=== PATIENT | female | born 1995 | race Two or more races ===

== ENCOUNTER 2024-05-29 10:20 | Outpatient (CLI) | payer OTHER | END 2024-05-29 10:22 | disposition home or self-care (01) | LOC: PRENATAL 10:20 | PROVIDERS: ATTEND Obstetrics & Gynecology Maternal & Fetal Medicine | DX: O36.80X0 Pregnancy with inconclusive fetal viability, not applicable or unspecified (principal); Z36.82 Encounter for antenatal screening for nuchal translucency; Z14.8 Genetic carrier of other disease; Z3A.12 12 weeks gestation of pregnancy ==

== ENCOUNTER → 2024-07-25 | Outpatient (CLI) | payer OTHER | END | disposition home or self-care (01) | LOC: PRENATAL 08:07 | PROVIDERS: ATTEND Obstetrics & Gynecology Maternal & Fetal Medicine | DX: O44.00 Complete placenta previa NOS or without hemorrhage, unspecified trimester (principal); Z3A.20 20 weeks gestation of pregnancy ==

== ENCOUNTER → 2024-10-17 10:57 | Outpatient (CLI) | payer OTHER | END | disposition home or self-care (01) | LOC: PRENATAL 10:57 | PROVIDERS: ATTEND Obstetrics & Gynecology Maternal & Fetal Medicine | DX: O26.849 Uterine size-date discrepancy, unspecified trimester (principal); O36.8199 Decreased fetal movements, unspecified trimester, other fetus; Z3A.32 32 weeks gestation of pregnancy ==

== ENCOUNTER 2024-12-01 13:45 | Inpatient (IN) | payer OTHER ==
[~2024-12-01] VITALS: Ht 157.5 cm; Wt 77.1 kg
[2024-12-01 13:27] LABS: MEAN CELL VOLUME 83.8 fL (80.00-100.00); MEAN CORPUSCULAR HEMOGLOBIN 27.9 pg (27.00-32.0); MEAN CORPUSCULAR HGB CONC 33.4 g/dl (32.0-36.0); PLATELET COUNT 278 K/uL (150-450); RED CELL DISTRIBUTION WIDTH 16.5 % (11.5-14.5)
[2024-12-01 13:44] LABS: INR < 0.93; PARTIAL THROMBOPLASTIN TIME 26.2 SECONDS (22.0-34.0); PROTHROMBIN TIME 9.8 SECONDS (9.0-11.5)
[2024-12-01 14:54] LABS: CALCIUM 8.9 mg/dL (8.5-10.1); CREATININE SERUM 0.43 mg/dL (0.55-1.02); GFR 173.6; POTASSIUM 3.96 mEq/L (3.5-5.1)
[2024-12-03 10:59] VITALS: BP 123/78
[2024-12-03] MEDS ORDERED: OXYTOCIN 20 UNITS/1000ML RL PIGGYBAG IV ONE (12:23)
[2024-12-03] MEDS ORDERED: LIDOCAINE HCL 1% 10ML VIAL ONE (12:23)
[2024-12-03] MEDS ORDERED: CHLORHEXIDINE GLUCONATE 120 ML BOTTLE TOP ONE ×2 (12:23→14:00)
[2024-12-03] MEDS ORDERED: ERYTHROMYCIN BASE OPHT 1GM EACH TUBE OP ONE ×2 (12:23→14:00)
[2024-12-03 13:11] VITALS: BP 123/67
[2024-12-03 13:49] VITALS: BP 122/74
[2024-12-03] MEDS ORDERED: LIDOCAINE HCL 1% 10ML VIAL PERCUT ONE (14:00)
[2024-12-03] MEDS ORDERED: OXYTOCIN 1,000 ML IV SCH (14:00)
[2024-12-03 15:10] VITALS: BP 114/61
[2024-12-03] MEDS ORDERED: BENZOCAINE/MENTHOL 90 ML BOTTLE TOP SCH (17:04)
[2024-12-03] MEDS ORDERED: DOCUSATE SODIUM 100MG CAP PO SCH (17:04)
[2024-12-03] MEDS ORDERED: IBUprofen 800 MG TABLET PO PRN (17:15)
[2024-12-03 18:02] VITALS: BP 123/77
[2024-12-04] VITALS: BP 106/68; O2SAT 96
[2024-12-04 15:50] LABS: HEMATOCRIT 31.8 % (36.0-45.00); HEMOGLOBIN 10.6 g/dL (12.0-15.00); MEAN CELL VOLUME 82.7 fL (80.00-100.00); MEAN CORPUSCULAR HEMOGLOBIN 27.7 pg (27.00-32.0); MEAN CORPUSCULAR HGB CONC 33.5 g/dl (32.0-36.0); PLATELET COUNT 251 K/uL (150-450); RED BLOOD COUNT 3.84 M/uL (4.00-6.00)
[2024-12-04 16:01] VITALS: BP 128/78
[2024-12-05] VITALS: BP 103/65
[2024-12-05 09:04] VITALS: BP 116/69
[2024-12-05] MEDS ORDERED: IBUPROFEN800 MG PO (12:38)
[2024-12-05] MEDS ORDERED: COLACE100 MG PO (12:38)
== END 2024-12-05 13:08 | disposition home or self-care (01) | DRG 807 ==
LOC: OB/GYN 12-03 11:23 → LDR 12-03 11:23 → OB/GYN 12-03 14:13
PROVIDERS: Student in an Organized Health Care Education/Training Program; ADMIT General Practice; ATTEND General Practice
PROC: 10E0XZZ Delivery of Products of Conception, External Approach (ICD-10-PCS; principal; 2024-12-03)
PROC: 0KQM0ZZ Repair Perineum Muscle, Open Approach (ICD-10-PCS; 2024-12-03)
PROC: 4A1HXCZ Monitoring of Products of Conception, Cardiac Rate, External Approach (ICD-10-PCS; 2024-12-03)
DX: O70.1 Second degree perineal laceration during delivery (principal); Z37.0 Single live birth; Z3A.38 38 weeks gestation of pregnancy